=== PATIENT | female | born 1960 | race Caucasian/White ===

== ENCOUNTER 2020-05-16 10:22 | Emergency (ER) | payer OTHER ==
[~2020-05-16] VITALS: Ht 160 cm; Wt 56.7 kg
[~2020-05-16 10:22] MED LIST: LIPITOR20 MG; SYNTHROID50 MCG
[2020-05-16] MEDS ORDERED: DICLOFENAC SODI75 MG PO (11:35)
== END 2020-05-16 11:39 | disposition home or self-care (01) ==
LOC: ER 10:22
DX: M54.5 Low back pain (principal)

== ENCOUNTER → 2020-07-19 | Emergency (ER) | payer OTHER ==
[~2020-07-19] VITALS: Ht 160 cm; Wt 56.2 kg
[~2020-07-19] MED LIST changes: +DICLOFENAC SODI75 MG PO
== END ==
LOC: ER 07:39
DX: E03.8 Other specified hypothyroidism (principal); R53.1 Weakness; F06.4 Anxiety disorder due to known physiological condition; Z20.828 Contact with and (suspected) exposure to other viral communicable diseases